=== PATIENT | female | born 1960 | race Two or more races ===

== ENCOUNTER 2022-10-17 16:31 | Emergency (ER) | payer SELFPAY ==
[~2022-10-17] VITALS: Ht 157.5 cm; Wt 61.3 kg
[2022-10-18 01:50] VITALS: BP 149/71
== END 2022-10-18 02:04 | disposition home or self-care (01) ==
LOC: EDBD 16:31 → ER 16:31
DX: R07.89 Other chest pain (principal); M25.562 Pain in left knee; V89.2XXA Person injured in unspecified motor-vehicle accident, traffic, initial encounter; Y93.I9 Activity, other involving external motion; Y92.89 Other specified places as the place of occurrence of the external cause; Y99.8 Other external cause status
CPT/HCPCS: 71046; 71250; 73562; 93005